=== PATIENT | female | born 1970 | race Caucasian/White ===

== ENCOUNTER 2016-12-12 00:14 | Emergency (ER) | payer OTHER ==
[~2016-12-12 00:14] MED LIST: CYMBALTA60 MG PO; FLEXERIL10 MG PO; MAGNESIUM500 MG PO; MOTRIN800 MG PO; OXY IR5 MG PO; TOPAMAX100 MG PO; TRAZODONE HCL100 MG PO; VITAMIN B121000 MC2 SL; XANAX0.5 MG PO
[2016-12-12 00:32] LABS: BASO % 0.3 % (0.0-1.0); EOS # 0.2 10*3/uL (0.0-0.4); EOS % 2.2 % (1.0-4.0); HEMATOCRIT 37.7 % (37.0-47.0); HEMOGLOBIN 12.8 g/dl (12.0-16.0); LYMPH # 2.3 10*3/uL (1.3-4.4); LYMPH % 32.6 % (27.0-41.0); MEAN CELL VOLUME 91.7 fl (81.0-99.0); MEAN CORPUSCULAR HGB 31.1 pg (27.0-31.0); MONO # 0.4 10*3/uL (0.1-1.0); MONO % 6.3 % (3.0-9.0); NEUT # 4.1 10*3/uL (2.3-7.9); NEUT % 58.3 % (47.0-73.0); PLATELET COUNT AUTOMATED 212 10*3/uL (130-400); RED BLOOD COUNT 4.11 10*6/uL (4.10-5.10)
[2016-12-12 00:42] LABS: PROTHROMBIN TIME 10.7 SECONDS (9.0-12.4)
[2016-12-12 00:53] LABS: ALBUMIN 3.6 gm/dl (3.1-4.5); BILIRUBIN, TOTAL 0.3 mg/dl (0.2-1.0); BUN 12 mg/dl (7-24); CARBON DIOXIDE 28 mmol/L (21-32); CHLORIDE 107 mmol/L (98-107); EST GLOM FILT AFRICAN AMERICAN > 60 ml/min; GLUCOSE 116 mg/dL (65-99); MAGNESIUM 2.1 mg/dL (1.5-2.1); POTASSIUM 3.8 mmol/L (3.5-5.1); SGOT/AST 10 IU/L (3-35); SGPT/ALT 17 U/L (12-78); SODIUM 141 mmol/L (136-145); TOTAL PROTEIN 6.4 gm/dL (6.4-8.2)
[2016-12-12 00:55] LABS: ALKALINE PHOSPHATASE 89 U/L (45-117); TROPONIN I < 0.015 ng/ml (<0.045)
[2016-12-12] MEDS ORDERED: LATU120T PO (01:09)
[2016-12-12] MEDS ORDERED: ATIVAN1 MG PO (01:09)
[2016-12-12] MEDS ORDERED: TRAZODONE150 MG PO (01:10)
[2016-12-12] MEDS ORDERED: REMERON15 M2 PO (01:10)
[2016-12-12] MEDS ORDERED: ZANAFLEX4 M1 PO (01:11)
[2016-12-12] MEDS ORDERED: ASPIR LOW81 MG PO (01:11)
[2016-12-12] MEDS ORDERED: AXERT12.5 MG PO (01:11)
[2016-12-12] MEDS ORDERED: GEMFIBROZIL600 MG PO (01:12)
[2016-12-12] MEDS ORDERED: SYNTHROID,LEVO88 MCG PO (01:12)
[2016-12-12] MEDS ORDERED: MIDODRINE HCL5 M1 PO (01:12)
[2016-12-12] MEDS ORDERED: VITAMIN D-32000 UNI1 PO (01:12)
[2016-12-12] MEDS ORDERED: ZOFRAN8 M1 PO (01:13)
[2016-12-12 01:20] LABS: ABG BASE EXCESS 2.2 mmol/L (-2.0-2.0); ABG CO2 CONTENT 27.8 mmol/L (23-27); ABG HCO3 26.5 mmol/l (22-26); ARTERIAL BLOOD GAS PH 7.42 (7.35-7.45); ARTERIAL BLOOD GAS PO2 85.3 mmHg (80-90)
[2016-12-12] MEDS ORDERED: KETOROLAC10 MG PO (01:33)
== END 2016-12-12 02:00 | disposition home or self-care (01) ==
LOC: ED 00:14
PROVIDERS: Emergency Medicine Emergency Medical Services
DX: R07.89 Other chest pain (principal); Z88.2 Allergy status to sulfonamides; Z88.8 Allergy status to other drugs, medicaments and biological substances; Z79.899 Other long term (current) drug therapy; Z79.82 Long term (current) use of aspirin

== ENCOUNTER 2017-01-30 14:39 | Emergency (ER) | payer OTHER ==
[~2017-01-30] VITALS: Ht 177.8 cm; Wt 93.0 kg
[~2017-01-30 14:39] MED LIST changes: +ASPIR LOW81 MG PO; +ATIVAN1 MG PO; +AXERT12.5 MG PO; +GEMFIBROZIL600 MG PO; +KETOROLAC10 MG PO; +LATU120T PO; +MIDODRINE HCL5 M1 PO; +REMERON15 M2 PO; +SYNTHROID,LEVO88 MCG PO; +TRAZODONE150 MG PO; +VITAMIN D-32000 UNI1 PO; +ZANAFLEX4 M1 PO; +ZOFRAN8 M1 PO
[2017-01-30] MEDS ORDERED: HYDROCODONE BIT1 T11 PO (15:59)
[2017-01-30] MEDS ORDERED: CYCLOBENZAPRINE5 M3 PO (15:59)
== END 2017-01-30 16:04 | disposition home or self-care (01) ==
LOC: ED 14:39
DX: S16.1XXA Strain of muscle, fascia and tendon at neck level, initial encounter (principal); S20.219A Contusion of unspecified front wall of thorax, initial encounter; F17.200 Nicotine dependence, unspecified, uncomplicated; Z88.2 Allergy status to sulfonamides; Z88.8 Allergy status to other drugs, medicaments and biological substances; Z79.82 Long term (current) use of aspirin; Z79.899 Other long term (current) drug therapy; W18.30XA Fall on same level, unspecified, initial encounter; Y93.89 Activity, other specified; Y92.9 Unspecified place or not applicable; Y99.9 Unspecified external cause status